=== PATIENT | male | born 1980 | race Two or more races ===

== ENCOUNTER 2020-07-02 14:27 | Emergency (ER) | payer OTHER ==
[2020-07-02] MEDS ORDERED: CYCLOBENZAPRINE5 MG PO (19:46)
[2020-07-02] MEDS ORDERED: NAPROSYN500 MG PO (19:46)
== END 2020-07-02 20:02 | disposition home or self-care (01) ==
LOC: ER1 14:27
DX: S09.90XA Unspecified injury of head, initial encounter (principal); S16.1XXA Strain of muscle, fascia and tendon at neck level, initial encounter; S39.012A Strain of muscle, fascia and tendon of lower back, initial encounter; S76.012A Strain of muscle, fascia and tendon of left hip, initial encounter; S76.011A Strain of muscle, fascia and tendon of right hip, initial encounter; S50.01XA Contusion of right elbow, initial encounter; V49.49XA Driver injured in collision with other motor vehicles in traffic accident, initial encounter; Y92.410 Unspecified street and highway as the place of occurrence of the external cause
CPT/HCPCS: 70450; 72125; 72131; 72170; 73080; 99284

== ENCOUNTER 2020-07-11 11:08 | Emergency (ER) | payer OTHER ==
[~2020-07-11 11:08] MED LIST: CYCLOBENZAPRINE5 MG PO; NAPROSYN500 MG PO
[2020-07-11] MEDS ORDERED: MEDROL DOSEPAK 24 MG PO (13:35)
== END 2020-07-11 13:55 | disposition home or self-care (01) ==
LOC: ER1 11:08
DX: M54.5 Low back pain (principal); V49.9XXA Car occupant (driver) (passenger) injured in unspecified traffic accident, initial encounter
CPT/HCPCS: 96372; 99283; J1100; J1885

== ENCOUNTER 2020-07-11 22:53 | Emergency (ER) | payer OTHER ==
[~2020-07-11 22:53] MED LIST changes: +MEDROL DOSEPAK 24 MG PO
== END 2020-07-12 00:50 | disposition left against medical advice (07) ==
LOC: ER1 22:53
DX: R00.2 Palpitations (principal); Z53.21 Procedure and treatment not carried out due to patient leaving prior to being seen by health care provider
CPT/HCPCS: 93005